=== PATIENT | male | born 1950 | race Caucasian/White ===

== ENCOUNTER → 2024-07-11 | Outpatient (CLI) | payer MEDICARE, BC ==
[~2024-07-11] MED LIST: ATOR20 PO; LISI20 PO; OMEP20ER PO
[2024-07-11 14:35] LABS: Stool Occult Bld Immuno 1 Negative (NEGATIVE)
== END ==
LOC: LAB 01:19 → LAB SHORT 01:19
PROVIDERS: Family Medicine
DX: D50.9 Iron deficiency anemia, unspecified (principal)
CPT/HCPCS: 82274